=== PATIENT | female | born 1980 | race African-American/Black ===

== ENCOUNTER 2016-12-30 02:41 | Emergency (ER) | payer MEDICAID ==
[~2016-12-30] VITALS: Ht 182.9 cm; Wt 163.0 kg
[2016-12-30] MEDS ORDERED: CLINDAMYCIN 600 MG in DEXTROSE 5% WATER 50 ML IV ONE (03:15)
[2016-12-30 04:43] VITALS: BP 178/104
== END 2016-12-30 04:44 | disposition home or self-care (01) ==
LOC: ER 02:44
DX: L03.213 Periorbital cellulitis (principal); I10 Essential (primary) hypertension; E78.00 Pure hypercholesterolemia, unspecified; E11.9 Type 2 diabetes mellitus without complications; Z88.0 Allergy status to penicillin
CPT/HCPCS: 82962; 96360; 99284; J3490; Z7610; J7060

== ENCOUNTER 2017-01-15 11:57 | Emergency (ER) | payer MEDICAID ==
[~2017-01-15] VITALS: Ht 182.9 cm; Wt 165.0 kg
[2017-01-15] MEDS ORDERED: MENTHOL/LANOLIN/CALAMINE/ZN OX OINT 71GM TOP STA (15:39)
[2017-01-15 17:31] VITALS: BP 121/81
== END 2017-01-15 17:35 | disposition home or self-care (01) ==
LOC: ER 13:47
DX: S30.814A Abrasion of vagina and vulva, initial encounter (principal); E11.9 Type 2 diabetes mellitus without complications; I10 Essential (primary) hypertension; H02.401 Unspecified ptosis of right eyelid; E78.00 Pure hypercholesterolemia, unspecified; Z88.0 Allergy status to penicillin; Z98.890 Other specified postprocedural states; X58.XXXA Exposure to other specified factors, initial encounter; Y92.018 Other place in single-family (private) house as the place of occurrence of the external cause
CPT/HCPCS: 81025; 87210; 99282; Z7610

== ENCOUNTER 2017-08-20 07:51 | Emergency (ER) | payer MEDICAID ==
[~2017-08-20] VITALS: Ht 185.4 cm; Wt 126.0 kg
[2017-08-20] MEDS ORDERED: ONDANSETRON HCL 4MG/2ML VIAL IV STA (08:40)
[2017-08-20] MEDS ORDERED: PANTOPRAZOLE SODIUM 40 MG/VIAL IV STA (08:40)
[2017-08-20] MEDS ORDERED: PANTOPRAZOLE 80 MG in SODIUM CHLORIDE 0.9% 100 ML IV STA (08:40)
[2017-08-20] MEDS ORDERED: MORPHINE SULFATE 4 MG/ML CPJ (NOT FOR IM USE) IV STA (08:40)
[2017-08-20 09:04] LABS: BASOPHILS % 0.2 % (0.0-2.0); HEMATOCRIT. 41.5 % (36.0-48.0); LYMPHOCYTES % 22.7 % (20.0-50.0); MEAN CORPUSCULAR VOLUME 97.4 fL (81.0-99.0); MEAN PLATELET VOLUME 9.5 fl (7.4-10.4); MONOCYTES % 8.1 % (2.0-8.0); PLATELET 209 x1000/uL (130-400); RED BLOOD CELL COUNT 4.26 mill/uL (4.2-5.4); RED CELL DISTRIBUTION WIDTH 14.1 % (11.6-14.6)
[2017-08-20 09:11] LABS: PARTIAL THROMBOPLASTIN TIME 26.2 sec (23.4-31.0); PROTHROMBIN TIME 10.9 sec (9.4-11.6)
[2017-08-20 09:14] LABS: CARBON DIOXIDE 28 mEq/L (21-32); CHLORIDE 98 mEq/L (98-107); ETHANOL BLOOD < 10 mg/dL
[2017-08-20 09:34] LABS: CLARITY URINE TURBID (CLEAR); COLOR URINE YELLOW (YELLOW); GLUCOSE URINE 3+ (NEGATIVE); KETONES URINE 2+ (NEGATIVE); LEUKOCYTE ESTERASE URINE NEGATIVE (NEGATIVE); NITRITE URINE POSITIVE (NEGATIVE); OCCULT BLOOD URINE TRACE (NEGATIVE); PROTEIN URINE 1+ (NEGATIVE); SPECIFIC GRAVITY URINE 1.043 (1.005-1.030); UROBILINOGEN URINE 0.2 E.U./dL (0.2-1.0)
[2017-08-20 10:20] VITALS: BP 155/94
== END 2017-08-20 11:03 | disposition left against medical advice (07) ==
LOC: ER 08:03 → CANRESERV 12:33 → ENRESERV 12:33 → CANBEDREQ 15:54
DX: I24.9 Acute ischemic heart disease, unspecified (principal); E11.9 Type 2 diabetes mellitus without complications; E78.00 Pure hypercholesterolemia, unspecified; I10 Essential (primary) hypertension; Z88.0 Allergy status to penicillin
CPT/HCPCS: 36415; 71010; 80053; 81001; 83690; 85025; 85610; 85730; 86850; 86900; 86901; 87086; 93005; 96365; 96366; 96375; 99285; C9113; G0482; J2270; J2405; Z7610; J7050

== ENCOUNTER 2017-11-26 16:13 | Emergency (ER) | payer MEDICAID ==
[~2017-11-26] VITALS: Ht 182.9 cm; Wt 163.0 kg
[2017-11-26] MEDS ORDERED: KETOROLAC 30MG/ML VIAL IV STA (17:35)
[2017-11-26] MEDS ORDERED: SODIUM CHLORIDE 0.9% 1,000 ML IV ONE ×2 (17:35→19:45)
[2017-11-26 17:52] LABS: BASOPHILS % 0.3 % (0.0-2.0); EOSINOPHILS % 1.6 % (0.0-5.0); HEMATOCRIT. 40.1 % (36.0-48.0); HEMOGLOBIN. 13.3 g/dL (12.0-16.0); LYMPHOCYTES % 25.4 % (20.0-50.0); MEAN CORPUSCULAR VOLUME 96.6 fL (81.0-99.0); MEAN PLATELET VOLUME 8.7 fl (7.4-10.4); MONOCYTES % 6.1 % (2.0-8.0); NEUTROPHILS % 66.6 % (40.0-76.0); PLATELET 235 x1000/uL (130-400); RED BLOOD CELL COUNT 4.15 mill/uL (4.2-5.4); RED CELL DISTRIBUTION WIDTH 14.1 % (11.6-14.6)
[2017-11-26 17:58] LABS: INR 1.1; PROTHROMBIN TIME 11.4 sec (9.4-11.6)
[2017-11-26 18:05] LABS: CHLORIDE 95 mEq/L (98-107); CREATINE KINASE 52 IU/L (26-192); ETHANOL BLOOD < 10 mg/dL
[2017-11-26 18:07] LABS: CLARITY URINE CLEAR (CLEAR); COLOR URINE YELLOW (YELLOW); KETONES URINE 1+ (NEGATIVE); LEUKOCYTE ESTERASE URINE NEGATIVE (NEGATIVE); NITRITE URINE NEGATIVE (NEGATIVE); OCCULT BLOOD URINE NEGATIVE (NEGATIVE); PH URINE 6.5 (4.5-8.0); PROTEIN URINE NEGATIVE (NEGATIVE); SPECIFIC GRAVITY URINE 1.039 (1.005-1.030); UROBILINOGEN URINE 0.2 E.U./dL (0.2-1.0)
[2017-11-26 18:23] LABS: *AMPHETAMINES SCREEN URINE NEGATIVE (NEGATIVE); *BARBITURATES SCREEN URINE NEGATIVE (NEGATIVE); *BENZODIAZEPINES SCREEN URINE NEGATIVE (NEGATIVE); *COCAINE SCREEN URINE NEGATIVE (NEGATIVE); METHADONE URINE SCREEN NEGATIVE (NEGATIVE); OPIATES URINE SCREEN NEGATIVE (NEGATIVE); PHENCYCLIDINE URINE SCREEN NEGATIVE (NEGATIVE)
[2017-11-26 18:34] LABS: CANNABINOID URINE SCREEN PRESUMTIVE POSITIVE (NEGATIVE)
[2017-11-26] MEDS ORDERED: INSULIN REGULAR (HUMULIN R) 300UNITS/3ML SUBCUT ONE (21:00)
[2017-11-26 21:56] VITALS: BP 155/81
[2018-02-18] MEDS ORDERED: METF-416 PO (12:32)
[2018-03-31] MEDS ORDERED: INSU100I24 SQ (09:29)
[2018-03-31] MEDS ORDERED: HYDR-2510 PO (09:35)
[2018-03-31] MEDS ORDERED: GEMF600T4 PO (09:35)
[2018-03-31] MEDS ORDERED: GLYB5TAB7 PO (09:35)
[2018-03-31] MEDS ORDERED: LEVO25TA7 PO (09:35)
== END 2017-11-26 21:58 | disposition home or self-care (01) ==
LOC: ER 17:55
DX: S30.1XXA Contusion of abdominal wall, initial encounter (principal); E11.65 Type 2 diabetes mellitus with hyperglycemia; I10 Essential (primary) hypertension; R00.1 Bradycardia, unspecified; J45.909 Unspecified asthma, uncomplicated; F12.10 Cannabis abuse, uncomplicated; Z88.0 Allergy status to penicillin; W01.0XXA Fall on same level from slipping, tripping and stumbling without subsequent striking against object, initial encounter; Y93.89 Activity, other specified; Y92.012 Bathroom of single-family (private) house as the place of occurrence of the external cause
CPT/HCPCS: 36415; 71045; 72170; 80053; 80305; 81003; 81025; 82550; 82962; 85025; 85610; 93005; 96361; 96374; 99285; G0482; J1885; J7030; Z7610

== ENCOUNTER 2018-01-07 07:08 | Emergency (ER) | payer MEDICAID ==
[~2018-01-07] VITALS: Ht 185.4 cm; Wt 136.0 kg
[2018-01-07] MEDS ORDERED: INSULIN REGULAR (HUMULIN R) UD 100 UNITS/ML SYR SUBCUT ONE (08:00)
[2018-01-07] MEDS ORDERED: SODIUM CHLORIDE 0.9% 1,000 ML IV ONE (08:00)
[2018-01-07 08:11] LABS: BASOPHILS % 0.3 % (0.0-2.0); EOSINOPHILS % 0.8 % (0.0-5.0); HEMATOCRIT. 38.1 % (36.0-48.0); HEMOGLOBIN. 12.4 g/dL (12.0-16.0); LYMPHOCYTES % 16.6 % (20.0-50.0); MEAN CORPUSCULAR HEMOGLOBIN 31.7 pg (28.0-32.0); MEAN PLATELET VOLUME 9.1 fl (7.4-10.4); NEUTROPHILS % 75.3 % (40.0-76.0); PLATELET 230 x1000/uL (130-400); RED BLOOD CELL COUNT 3.93 mill/uL (4.2-5.4); RED CELL DISTRIBUTION WIDTH 14.2 % (11.6-14.6)
[2018-01-07 08:16] LABS: CHLORIDE 103 mEq/L (98-107)
[2018-01-07 08:18] LABS: INR 1.1; PROTHROMBIN TIME 11.5 sec (9.4-11.6)
[2018-01-07] MEDS ORDERED: INSULIN REGULAR (HUMULIN R) 300UNITS/3ML SUBCUT NR (08:30)
[2018-01-07] MEDS: CLONIDINE 0.1MG TABLET PO NR ×2 (10:19→10:28)
[2018-01-07 10:45] LABS: CLARITY URINE CLEAR (CLEAR); COLOR URINE YELLOW (YELLOW); KETONES URINE 2+ (NEGATIVE); LEUKOCYTE ESTERASE URINE 1+ (NEGATIVE); NITRITE URINE POSITIVE (NEGATIVE); OCCULT BLOOD URINE 1+ (NEGATIVE); PROTEIN URINE 1+ (NEGATIVE); SPECIFIC GRAVITY URINE 1.031 (1.005-1.030); UROBILINOGEN URINE 0.2 E.U./dL (0.2-1.0)
[2018-01-07 12:05] VITALS: BP 169/90
== END 2018-01-07 12:34 | disposition home or self-care (01) ==
LOC: ER 07:08
DX: F12.129 Cannabis abuse with intoxication, unspecified (principal); E11.9 Type 2 diabetes mellitus without complications; I10 Essential (primary) hypertension; E66.01 Morbid (severe) obesity due to excess calories; Z88.0 Allergy status to penicillin; Z68.39 Body mass index [BMI] 39.0-39.9, adult
CPT/HCPCS: 36415; 80053; 81003; 82962; 83690; 85025; 85610; 87077; 87086; 87186; 93005; 96360; 96372; 99285; J1815; J7030; Z7610

== ENCOUNTER 2018-02-18 12:22 | Emergency (ER) | payer MEDICAID ==
[~2018-02-18] VITALS: Ht 182.9 cm; Wt 154.0 kg
[2018-02-18] MEDS ORDERED: METF10002 PO (12:32)
[2018-02-18] MEDS ORDERED: AMLO10TA80 PO (12:32)
[2018-02-18] MEDS ORDERED: HYDROCODONE/ACETAMINOPHEN 5/325MG TABLET PO ONE ×2 (13:00→19:00)
[2018-02-18 20:45] VITALS: BP 146/88
== END 2018-02-18 21:05 | disposition home or self-care (01) ==
LOC: ER 12:26
DX: S93.402A Sprain of unspecified ligament of left ankle, initial encounter (principal); E86.0 Dehydration; M54.5 Low back pain; M51.37 Other intervertebral disc degeneration, lumbosacral region; W01.0XXA Fall on same level from slipping, tripping and stumbling without subsequent striking against object, initial encounter; E11.9 Type 2 diabetes mellitus without complications; I10 Essential (primary) hypertension; E66.01 Morbid (severe) obesity due to excess calories; Z88.0 Allergy status to penicillin; Z68.42 Body mass index [BMI] 45.0-49.9, adult
CPT/HCPCS: 72100; 73030; 73070; 73560; 73600; 93005; 99284

== ENCOUNTER 2018-02-26 11:51 | Emergency (ER) | payer MEDICAID ==
[~2018-02-26] VITALS: Ht 182.9 cm; Wt 160.0 kg
[~2018-02-26 11:51] MED LIST: AMLO10TA80 PO; METF10002 PO
[2018-02-26 12:08] VITALS: BP 178/98
== END 2018-02-26 15:00 | disposition home or self-care (01) ==
LOC: ER 14:54
DX: Z51.89 Encounter for other specified aftercare (principal); E11.9 Type 2 diabetes mellitus without complications; I10 Essential (primary) hypertension; K21.9 Gastro-esophageal reflux disease without esophagitis; Z88.0 Allergy status to penicillin; Z79.84 Long term (current) use of oral hypoglycemic drugs
CPT/HCPCS: 99281

== ENCOUNTER 2018-07-23 22:30 | Emergency (ER) | payer MEDICAID ==
[~2018-07-23] VITALS: Ht 182.9 cm; Wt 160.0 kg
[~2018-07-23 22:30] MED LIST changes: +GEMF600T4 PO; +GLYB5TAB7 PO; +HYDR-2510 PO; +INSU100I24 SQ; +LEVO25TA7 PO; -METF10002 PO; +METF10004 PO
[2018-07-24] VITALS: BP 165/83
== END 2018-07-24 00:20 | disposition home or self-care (01) ==
LOC: ER 22:30
DX: R10.2 Pelvic and perineal pain (principal); E11.9 Type 2 diabetes mellitus without complications; I10 Essential (primary) hypertension; T74.21XA Adult sexual abuse, confirmed, initial encounter; Z79.899 Other long term (current) drug therapy; Z79.4 Long term (current) use of insulin; Z88.6 Allergy status to analgesic agent; Z88.0 Allergy status to penicillin; X58.XXXA Exposure to other specified factors, initial encounter
CPT/HCPCS: 99281; Z7610

== ENCOUNTER 2019-05-17 23:46 | Emergency (ER) | payer MEDICAID ==
[~2019-05-17] VITALS: Ht 182.9 cm; Wt 155.0 kg
[~2019-05-17 23:46] MED LIST changes: -GEMF600T4 PO; +GEMF600T5 PO; +METF-416 PO; -METF10004 PO
[2019-05-18] MEDS ORDERED: HYDROCODONE/ACETAMINOPHEN 10/325MG TABLET PO ONE (02:00)
[2019-05-18] MEDS ORDERED: KETOROLAC 60MG/2ML VIAL IM ONE (02:00)
[2019-05-18 02:26] LABS: CHLORIDE 98 mEq/L (98-107)
[2019-05-18 02:31] LABS: BASOPHILS % 0.1 % (0.0-2.0); EOSINOPHILS % 0.4 % (0.0-5.0); HEMATOCRIT. 41.4 % (36.0-48.0); HEMOGLOBIN. 13.8 g/dL (12.0-16.0); LYMPHOCYTES % 10.1 % (20.0-50.0); MEAN CORPUSCULAR HEMOGLOBIN 32.6 pg (28.0-32.0); MEAN CORPUSCULAR VOLUME 97.5 fL (81.0-99.0); MEAN PLATELET VOLUME 9.8 fl (7.4-10.4); MONOCYTES % 4.4 % (2.0-8.0); PLATELET 200 x1000/uL (130-400); RED BLOOD CELL COUNT 4.25 mill/uL (4.2-5.4); RED CELL DISTRIBUTION WIDTH 13.8 % (11.6-14.6)
[2019-05-18 02:54] LABS: CLARITY URINE CLOUDY (CLEAR); COLOR URINE YELLOW (YELLOW); KETONES URINE 1+ (NEGATIVE); LEUKOCYTE ESTERASE URINE NEGATIVE (NEGATIVE); NITRITE URINE POSITIVE (NEGATIVE); OCCULT BLOOD URINE NEGATIVE (NEGATIVE); PROTEIN URINE TRACE (NEGATIVE); SPECIFIC GRAVITY URINE 1.035 (1.005-1.030)
[2019-05-18 04:12] VITALS: BP 121/64
[2019-05-18] MEDS ORDERED: LEVOFLOXACIN 250MG TABLET PO ONE (04:30)
[2019-05-18] MEDS ORDERED: FLUCONAZOLE 100MG TABLET PO ONE (04:30)
== END 2019-05-18 04:54 | disposition home or self-care (01) ==
LOC: ER 23:46
DX: G89.29 Other chronic pain (principal); E11.9 Type 2 diabetes mellitus without complications; I10 Essential (primary) hypertension; N39.0 Urinary tract infection, site not specified; I25.2 Old myocardial infarction; Z79.4 Long term (current) use of insulin; Z88.0 Allergy status to penicillin; Z88.6 Allergy status to analgesic agent
CPT/HCPCS: 36415; 80048; 81003; 81025; 85025; 96372; 99283; J1885

== ENCOUNTER 2019-06-02 00:50 | Inpatient (IN) | payer MEDICAID ==
[2019-06-02] VITALS (20 sets, daily range): BP systolic 127–169; BP diastolic 61–104
[~2019-06-02] VITALS: Ht 172.7 cm; Wt 159.0 kg
[2019-06-02] MEDS ORDERED: ADENOSINE 3 MG/ML 2ML VIAL IV ONE ×2 (01:30)
[2019-06-02] MEDS ORDERED: DILTIAZEM HCL 5MG/ML 5ML VIAL IV ONE (01:30)
[2019-06-02] MEDS ORDERED: DILTIAZEM HCL 30MG TABLET PO ONE (01:30)
[2019-06-02 02:15] LABS: BASOPHILS % 0.7 % (0.0-2.0); EOSINOPHILS % 0.5 % (0.0-5.0); HEMATOCRIT. 44.8 % (36.0-48.0); HEMOGLOBIN. 14.8 g/dL (12.0-16.0); LYMPHOCYTES % 46.7 % (20.0-50.0); MEAN CORPUSCULAR HEMOGLOBIN 32.4 pg (28.0-32.0); MEAN CORPUSCULAR VOLUME 98.2 fL (81.0-99.0); MEAN PLATELET VOLUME 10.8 fl (7.4-10.4); MONOCYTES % 7.5 % (2.0-8.0); NEUTROPHILS % 44.6 % (40.0-76.0); PLATELET 252 x1000/uL (130-400); RED BLOOD CELL COUNT 4.56 mill/uL (4.2-5.4)
[2019-06-02 02:18] LABS: CHLORIDE 100 mEq/L (98-107)
[2019-06-02 02:21] LABS: HCG SCREEN NEGATIVE
[2019-06-02 02:25] LABS: ETHANOL BLOOD < 10 mg/dL
[2019-06-02 02:30] LABS: D-DIMER 0.53 mg/L FEU (<0.50); PARTIAL THROMBOPLASTIN TIME 26.4 sec (23.4-31.0); PROTHROMBIN TIME 10.7 sec (9.6-11.0)
[2019-06-02 02:37] LABS: CLARITY URINE CLOUDY (CLEAR); COLOR URINE BLOODY (YELLOW); KETONES URINE 1+ (NEGATIVE); LEUKOCYTE ESTERASE URINE 1+ (NEGATIVE); NITRITE URINE NEGATIVE (NEGATIVE); OCCULT BLOOD URINE 3+ (NEGATIVE); PROTEIN URINE 2+ (NEGATIVE); SPECIFIC GRAVITY URINE 1.035 (1.005-1.030); UROBILINOGEN URINE 0.2 E.U./dL (0.2-1.0)
[2019-06-02 02:51] LABS: *AMPHETAMINES SCREEN URINE NEGATIVE (NEGATIVE); *BARBITURATES SCREEN URINE NEGATIVE (NEGATIVE); *BENZODIAZEPINES SCREEN URINE NEGATIVE (NEGATIVE); *COCAINE SCREEN URINE NEGATIVE (NEGATIVE); METHADONE URINE SCREEN NEGATIVE (NEGATIVE)
[2019-06-02 02:52] LABS: CANNABINOID URINE SCREEN NEGATIVE (NEGATIVE); OPIATES URINE SCREEN NEGATIVE (NEGATIVE); PHENCYCLIDINE URINE SCREEN NEGATIVE (NEGATIVE)
[2019-06-02] MEDS ORDERED: INSULIN REGULAR (HUMULIN R) 300UNITS/3ML SUBCUT ONE (03:30)
[2019-06-02] MEDS ORDERED: LEVOFLOXACIN 500MG PREMIX 100 ML IV ONE (03:30)
[2019-06-02] MEDS ORDERED: ASPIRIN 81MG TABLET PO ONE (03:45)
[2019-06-02] MEDS ORDERED: ENOXAPARIN 150MG/ML SYR SUBCUT ONE (05:15)
[2019-06-02] MEDS ORDERED: INSULIN REGULAR (HUMULIN R) 300UNITS/3ML IV ONE (05:30)
[2019-06-02] MEDS ORDERED: ONDANSETRON HCL 4MG/2ML INJ IV PRN (08:15)
[2019-06-02] MEDS ORDERED: DEXTROSE 50% WATER 50ML SYRINGE IV PRN (08:15)
[2019-06-02] MEDS ORDERED: ACETAMINOPHEN 325MG TABLET PO PRN (08:15)
[2019-06-02] MEDS: INSULIN LISPRO 100 UNITS/ML SUBCUT SCH ×4 (09:30→21:23)
[2019-06-02] MEDS: BLOOD SUGAR DIAGNOSTIC STRIP TEST SCH ×4 (09:30→21:10)
[2019-06-02] MEDS ORDERED: INSULIN GLARGINE UD 100 UNITS/ML SYR SUBCUT SCH (10:30)
[2019-06-02 10:41] LABS: T4 FREE 0.82 ng/dL (0.76-1.46)
[2019-06-02] MEDS: ENOXAPARIN 40MG/0.4ML SYR SUBCUT SCH ×2 (12:23→21:24)
[2019-06-02] MEDS: DILTIAZEM HCL 60MG TABLET PO SCH ×2 (16:38→21:25)
[2019-06-02] MEDS ORDERED: ATORVASTATIN CALCIUM 40MG TABLET PO SCH (21:00)
[2019-06-02] MEDS: INSULIN GLARGINE UD 100 UNITS/ML SYR SUBCUT SCH (22:00)
[2019-06-03] VITALS (14 sets, daily range): BP systolic 122–162; BP diastolic 55–94
[2019-06-03] MEDS: DILTIAZEM HCL 60MG TABLET PO SCH (05:23)
[2019-06-03] MEDS: BLOOD SUGAR DIAGNOSTIC STRIP TEST SCH ×2 (05:23→11:50)
[2019-06-03] MEDS ORDERED: LEVOFLOXACIN 500MG PREMIX 100 ML IV SCH (06:00)
[2019-06-03 07:15] LABS: BASOPHILS % 0.5 % (0.0-2.0); EOSINOPHILS % 1.4 % (0.0-5.0); HEMATOCRIT. 36.9 % (36.0-48.0); HEMOGLOBIN. 12.2 g/dL (12.0-16.0); LYMPHOCYTES % 39.6 % (20.0-50.0); MEAN CORPUSCULAR HEMOGLOBIN 31.8 pg (28.0-32.0); MEAN CORPUSCULAR VOLUME 96.3 fL (81.0-99.0); MEAN PLATELET VOLUME 9.7 fl (7.4-10.4); NEUTROPHILS % 51.5 % (40.0-76.0); PLATELET 195 x1000/uL (130-400); RED BLOOD CELL COUNT 3.83 mill/uL (4.2-5.4); RED CELL DISTRIBUTION WIDTH 13.3 % (11.6-14.6)
[2019-06-03] MEDS: INSULIN LISPRO 100 UNITS/ML SUBCUT SCH ×2 (07:20→13:04)
[2019-06-03 07:36] LABS: CHLORIDE 103 mEq/L (98-107)
[2019-06-03] MEDS: INSULIN GLARGINE UD 100 UNITS/ML SYR SUBCUT SCH (08:43)
[2019-06-03] MEDS: ENOXAPARIN 40MG/0.4ML SYR SUBCUT SCH (08:43)
[2019-06-03] MEDS ORDERED: ASPIRIN 81MG TABLET PO SCH (09:00)
[2019-06-03] MEDS ORDERED: DILTIAZEM HCL 300MG CAPSULE SR 24HR PO SCH (11:00)
[2019-06-03] MEDS ORDERED: FISH OIL/OMEGA-3 FATTY ACIDS 1000MG CAPSULE PO SCH (11:00)
== END 2019-06-03 17:20 | disposition home or self-care (01) | DRG 720 ==
LOC: ER 00:50 → 3WST 03:31 → EDBEDREQTM 03:38 → EDBEDREQ 03:38 → ENRESERV 07:24
PROVIDERS: ADMIT Internal Medicine; ATTEND Internal Medicine
DX: A41.9 Sepsis, unspecified organism (principal); E11.65 Type 2 diabetes mellitus with hyperglycemia; I47.1 Supraventricular tachycardia; E87.5 Hyperkalemia; E66.01 Morbid (severe) obesity due to excess calories; I11.9 Hypertensive heart disease without heart failure; N39.0 Urinary tract infection, site not specified; E78.5 Hyperlipidemia, unspecified; E78.1 Pure hyperglyceridemia; Z98.891 History of uterine scar from previous surgery; Z68.43 Body mass index [BMI] 50.0-59.9, adult; Z71.3 Dietary counseling and surveillance; Z88.0 Allergy status to penicillin; Z88.8 Allergy status to other drugs, medicaments and biological substances; Z79.4 Long term (current) use of insulin; Z79.84 Long term (current) use of oral hypoglycemic drugs; Z79.899 Other long term (current) drug therapy
CPT/HCPCS: 36415; 71045; 80048; 80061; 80305; 80320; 81003; 82962; 83880; 84439; 84443; 84484; 84703; 85379; 93005; 93306; 99285; J0153; J1650; J1815; J1956; J3490; G0480

== ENCOUNTER 2019-10-16 03:29 | Emergency (ER) | payer MEDICAID ==
[~2019-10-16] VITALS: Ht 182.9 cm; Wt 158.0 kg
[2019-10-16] MEDS ORDERED: IBUPROFEN 600MG TABLET PO STA (05:10)
[2019-10-16 05:24] LABS: CLARITY URINE TURBID (CLEAR); COLOR URINE YELLOW (YELLOW); KETONES URINE TRACE (NEGATIVE); LEUKOCYTE ESTERASE URINE 1+ (NEGATIVE); NITRITE URINE POSITIVE (NEGATIVE); OCCULT BLOOD URINE 2+ (NEGATIVE); PH URINE 5.5 (4.5-8.0); PROTEIN URINE 1+ (NEGATIVE); SPECIFIC GRAVITY URINE 1.039 (1.005-1.030)
[2019-10-16] MEDS ORDERED: KETOROLAC 60MG/2ML VIAL IM STA (05:33)
[2019-10-16 06:25] VITALS: BP 199/99
[2019-10-16] MEDS ORDERED: CLONIDINE 0.1MG TABLET PO ONE (06:30)
== END 2019-10-16 06:45 | disposition home or self-care (01) ==
LOC: ER 04:26
DX: L29.8 Other pruritus (principal); N39.0 Urinary tract infection, site not specified; N76.4 Abscess of vulva; N76.0 Acute vaginitis; E11.9 Type 2 diabetes mellitus without complications; Z79.4 Long term (current) use of insulin; Z88.6 Allergy status to analgesic agent; Z88.0 Allergy status to penicillin
CPT/HCPCS: 81003; 81025; 87077; 87086; 87186; 96372; 99283; J1885

== ENCOUNTER 2020-01-22 22:44 | Emergency (ER) | payer MEDICAID ==
[~2020-01-22] VITALS: Ht 182.9 cm; Wt 137.0 kg
[2020-01-23 01:25] LABS: BASOPHILS % 0.6 % (0.0-2.0); EOSINOPHILS % 0.4 % (0.0-5.0); HEMATOCRIT. 41.1 % (36.0-48.0); HEMOGLOBIN. 13.8 g/dL (12.0-16.0); LYMPHOCYTES % 29.8 % (20.0-50.0); MEAN CORPUSCULAR HEMOGLOBIN 32.5 pg (28.0-32.0); MEAN CORPUSCULAR VOLUME 96.9 fL (81.0-99.0); MEAN PLATELET VOLUME 8.7 fl (7.4-10.4); NEUTROPHILS % 63.2 % (40.0-76.0); PLATELET 235 x1000/uL (130-400); RED BLOOD CELL COUNT 4.25 mill/uL (4.2-5.4)
[2020-01-23 01:30] LABS: CHLORIDE 101 mEq/L (98-107)
[2020-01-23 01:35] LABS: ETHANOL BLOOD 35 mg/dL
[2020-01-23 02:00] VITALS: BP 136/82
== END 2020-01-23 02:56 | disposition home or self-care (01) ==
LOC: ER 22:44
DX: F10.129 Alcohol abuse with intoxication, unspecified (principal); T50.905A Adverse effect of unspecified drugs, medicaments and biological substances, initial encounter; E11.9 Type 2 diabetes mellitus without complications; I10 Essential (primary) hypertension; Y90.1 Blood alcohol level of 20-39 mg/100 ml; Z79.84 Long term (current) use of oral hypoglycemic drugs; Z98.890 Other specified postprocedural states; Z88.6 Allergy status to analgesic agent; Z88.0 Allergy status to penicillin; Y92.89 Other specified places as the place of occurrence of the external cause
CPT/HCPCS: 36415; 80053; 80320; 81025; 85025; 99283; G0480

== ENCOUNTER 2020-01-27 18:01 | Emergency (ER) | payer MEDICAID ==
[~2020-01-27] VITALS: Ht 170.2 cm; Wt 109.0 kg
[2020-01-27] MEDS ORDERED: SODIUM CHLORIDE 0.9% 1,000 ML IV ONE (18:50)
[2020-01-27] MEDS ORDERED: ONDANSETRON HCL 4MG/2ML INJ IV STA (18:50)
[2020-01-27 19:19] LABS: BASOPHILS % 0.4 % (0.0-2.0); EOSINOPHILS % 0.3 % (0.0-5.0); HEMATOCRIT. 41.7 % (36.0-48.0); HEMOGLOBIN. 14.2 g/dL (12.0-16.0); LYMPHOCYTES % 12.3 % (20.0-50.0); MEAN CORPUSCULAR HEMOGLOBIN 32.6 pg (28.0-32.0); MEAN CORPUSCULAR VOLUME 95.8 fL (81.0-99.0); MEAN PLATELET VOLUME 9.3 fl (7.4-10.4); MONOCYTES % 5.9 % (2.0-8.0); NEUTROPHILS % 81.1 % (40.0-76.0); PLATELET 229 x1000/uL (130-400); RED BLOOD CELL COUNT 4.36 mill/uL (4.2-5.4)
[2020-01-27 19:26] LABS: CHLORIDE 103 mEq/L (98-107); HCG SCREEN NEGATIVE
[2020-01-27] MEDS ORDERED: ONDANSETRON HCL 4MG/2ML INJ IM NR (20:00)
[2020-01-27 21:56] VITALS: BP 156/80
== END 2020-01-27 21:58 | disposition home or self-care (01) ==
LOC: ER 18:01
DX: F12.10 Cannabis abuse, uncomplicated (principal); R07.89 Other chest pain; R11.10 Vomiting, unspecified; I10 Essential (primary) hypertension; E11.9 Type 2 diabetes mellitus without complications; Z98.890 Other specified postprocedural states; Z79.4 Long term (current) use of insulin; Z88.6 Allergy status to analgesic agent; Z88.0 Allergy status to penicillin
CPT/HCPCS: 36415; 71045; 80053; 83690; 83880; 84484; 84703; 85025; 93005; 96372; 99285; J2405; J7030

== ENCOUNTER 2020-05-31 12:57 | Emergency (ER) | payer MEDICAID ==
[~2020-05-31] VITALS: Ht 182.9 cm; Wt 145.0 kg
[2020-05-31 14:50] VITALS: BP 170/90
== END 2020-05-31 14:53 | disposition home or self-care (01) ==
LOC: ER 12:57
DX: B37.3 Candidiasis of vulva and vagina (principal); E11.65 Type 2 diabetes mellitus with hyperglycemia; G62.9 Polyneuropathy, unspecified; E11.9 Type 2 diabetes mellitus without complications; I10 Essential (primary) hypertension; Z79.899 Other long term (current) drug therapy; Z88.0 Allergy status to penicillin; Z88.6 Allergy status to analgesic agent
CPT/HCPCS: 81025; 82962; 99284

== ENCOUNTER 2020-07-21 09:49 | Emergency (ER) | payer MEDICAID ==
[~2020-07-21] VITALS: Ht 170.2 cm; Wt 136.0 kg
[2020-07-21] MEDS ORDERED: MORPHINE SULFATE 4 MG/ML CPJ (NOT FOR IM USE) IV STA (10:17)
[2020-07-21] MEDS ORDERED: ONDANSETRON HCL 4MG/2ML INJ IV STA (10:17)
[2020-07-21] MEDS ORDERED: FAMOTIDINE 20MG/2ML VIAL IV STA (10:17)
[2020-07-21] MEDS ORDERED: SODIUM CHLORIDE 0.9% 1,000 ML IV ONE ×2 (10:30→14:15)
[2020-07-21 11:07] LABS: BASOPHILS % 0.3 % (0.0-2.0); EOSINOPHILS % 0.4 % (0.0-5.0); HEMATOCRIT. 38.3 % (36.0-48.0); HEMOGLOBIN. 12.6 g/dL (12.0-16.0); LYMPHOCYTES % 9.8 % (20.0-50.0); MEAN CORPUSCULAR HEMOGLOBIN 31.7 pg (28.0-32.0); MEAN CORPUSCULAR VOLUME 96.3 fL (81.0-99.0); MEAN PLATELET VOLUME 9.3 fl (7.4-10.4); MONOCYTES % 3.1 % (2.0-8.0); NEUTROPHILS % 86.4 % (40.0-76.0); PLATELET 221 x1000/uL (130-400); RED BLOOD CELL COUNT 3.98 mill/uL (4.2-5.4); RED CELL DISTRIBUTION WIDTH 13.7 % (11.6-14.6)
[2020-07-21 11:11] LABS: CHLORIDE 96 mEq/L (98-107)
[2020-07-21 11:20] LABS: INR 1.1; PROTHROMBIN TIME 11.1 sec (9.6-11.0)
[2020-07-21 11:23] LABS: HCG SCREEN NEGATIVE
[2020-07-21] MEDS ORDERED: INSULIN REGULAR (HUMULIN R) 300UNITS/3ML SUBCUT NR (12:00)
[2020-07-21] MEDS ORDERED: VISCOUS LIDOCAINE 2% 15 ML UDC PO STA (13:18)
[2020-07-21] MEDS ORDERED: MAGNESIUM/ALUMINUM HYDROXIDE/SIMETHICONE 30ML UDC PO STA (13:18)
[2020-07-21] MEDS ORDERED: INSULIN REGULAR (HUMULIN R) 300UNITS/3ML IV ONE (14:15)
[2020-07-21 16:36] VITALS: BP 148/82
== END 2020-07-21 17:25 | disposition home or self-care (01) ==
LOC: ER 09:49 → EDBEDREQ 10:31 → EDBEDREQTM 12:56 → EDBEDREQSVC 12:56 → EDBEDREQ 12:56 → CANBEDREQ 17:12 → ER 17:25
DX: K29.00 Acute gastritis without bleeding (principal); E11.65 Type 2 diabetes mellitus with hyperglycemia; I25.2 Old myocardial infarction; I10 Essential (primary) hypertension; E11.9 Type 2 diabetes mellitus without complications; Z88.0 Allergy status to penicillin; Z88.6 Allergy status to analgesic agent; Z79.899 Other long term (current) drug therapy
CPT/HCPCS: 36415; 71045; 74176; 80053; 82962; 83690; 84703; 85025; 85610; 93005; 96361; 96372; 96374; 96375; 99285; J1815; J2270; J2405; J3490; J7030

== ENCOUNTER 2022-04-05 13:37 | Emergency (ER) | payer MEDICAID ==
[~2022-04-05] VITALS: Ht 172.7 cm; Wt 125.0 kg
[~2022-04-05 13:37] MED LIST changes: -GEMF600T5 PO; +GEMF600T90 PO; -HYDR-2510 PO; +HYDR50TA PO
[2022-04-05 13:39] VITALS: BP 183/92
[2022-04-05] MEDS ORDERED: DOXYCYCLINE 100 MG in DEXT 5% WATER 100 ML IV STA (23:06)
[2022-04-05] MEDS ORDERED: SODIUM CHLORIDE 0.9% 1000ML BAG (SEPSIS BOLUS) IV ONE (23:15)
[2022-04-05] MEDS ORDERED: VANCOMYCIN 1G PREMIX 200 ML IV ONE (23:15)
[2022-04-05 23:49] LABS: CHLORIDE 101 mEq/L (98-107)
[2022-04-05 23:53] LABS: BASOPHILS % 0.3 % (0.0-2.0); EOSINOPHILS % 1.2 % (0.0-5.0); HEMATOCRIT. 42.1 % (36.0-48.0); HEMOGLOBIN. 13.9 g/dL (12.0-16.0); LYMPHOCYTES % 33.3 % (20.0-50.0); MEAN CORPUSCULAR HEMOGLOBIN 31.9 pg (28.0-32.0); MEAN PLATELET VOLUME 9.4 fl (7.4-10.4); MONOCYTES % 9.4 % (2.0-8.0); NEUTROPHILS % 55.8 % (40.0-76.0); PLATELET 273 x1000/uL (130-400); RED BLOOD CELL COUNT 4.34 mill/uL (4.2-5.4); RED CELL DISTRIBUTION WIDTH 14.2 % (11.6-14.6)
[2022-04-06] MEDS ORDERED: INSULIN REGULAR (HUMULIN R) 300UNITS/3ML VIAL IV ONE
[2022-04-06] MEDS ORDERED: DOXY100C5 MT (01:04)
[2022-04-06] MEDS ORDERED: SULF1TAB48 MT (01:04)
== END 2022-04-06 02:09 | disposition left against medical advice (07) ==
LOC: ER 13:37 → ENRESERV 04-06 07:20 → CANBEDREQ 04-06 16:18
DX: E11.621 Type 2 diabetes mellitus with foot ulcer (principal); L97.519 Non-pressure chronic ulcer of other part of right foot with unspecified severity; E11.65 Type 2 diabetes mellitus with hyperglycemia; I11.9 Hypertensive heart disease without heart failure; Z79.4 Long term (current) use of insulin; Z88.0 Allergy status to penicillin
CPT/HCPCS: 36415; 73660; 80053; 82962; 83605; 84145; 85025; 87040; 96365; 96368; 96375; 99291; J1815; J3370; J3490; J7030; J7060